=== PATIENT | male | born 1985 | race Caucasian/White ===

== ENCOUNTER 2017-05-14 04:16 | Emergency (ER) | payer SELFPAY ==
[2017-05-14 04:19] VITALS: BP 138/90; PULSE 90; RESP 16; TEMP 98.2; O2SAT 99
--- NOTE | 2017-05-14 04:33 | PD ---
HPI Chief Complaint: Foreign Body Time Seen by Provider: 04:30 Travel History International Travel<30 days: No Contact w/Intl Traveler<30days: No Traveled to known affect area: No History of Present Illness HPI Patient comes in with concerns over possible foreign body in his right forearm. Patient states he was shooting up with Dilaudid and part of the 30-gauge needle broke off he believes in his forearm. Patient denies any pain with this. Patient states he is just concerned that it is still there. Denies any chest pain, shortness of breath, fevers, abdominal pain, or headache. Patient states he feels though the foreign body remains in his forearm but is uncertain exact spot. Denies anything making this better or worse. Patient reports his tetanus shot is up-to-date. [facility] Past Medical History Medical History: Denies Significant Hx Social History Alcohol Use: No Tobacco Use: Yes Substance Use: Yes Allergies-Medications (Allergen,Severity, Reaction): Coded Allergies: Penicillin (Verified Allergy, Severe, Edema, 05/14/17) Reported Meds & Prescriptions Reported Meds & Active Scripts Active Bactrim DS (Sulfamethoxazole-Trimethoprim) 800-160 Mg Tab 1 Tab PO BID Review of Systems Except as stated in HPI: all other systems reviewed are Neg Physical Exam Narrative GENERAL: Well-developed, well nourished, in no acute distress, and non-ill appearing. SKIN: Focused skin assessment warm and dry. Multiple tattoos noted on right forearm with track pak noted. No obvious foreign body noted. No signs of infection. HEAD: Atraumatic. Normocephalic. EYES: Pupils equal and round. EOMI. No scleral icterus. No injection or drainage. ENT: No nasal bleeding or discharge. Mucous membranes pink and moist. NECK: Trachea midline. Supple. No nuclear rigidity. CARDIOVASCULAR: Regular rate and rhythm. No murmur appreciated. RESPIRATORY: No accessory muscle use. No respiratory distress. Clear to auscultation. Breath sounds equal bilaterally. MUSCULOSKELETAL: No obvious deformities. No clubbing. No cyanosis. No edema. Full range of motion. NEUROLOGICAL: Awake and alert. No obvious cranial nerve deficits. Motor grossly within normal limits. Normal speech. PSYCHIATRIC: Appropriate mood and affect; insight and judgment normal. Data Data Last Documented VS Vital Signs Date Time Temp Pulse Resp B/P Pulse Ox O2 Delivery O2 Flow Rate FiO2 05/14/17 04:19 98.2 90 16 138/90 99 Room Air Orders Forearm (2vws) (05/14/17 ) MDM Medical Decision Making Medical Screen Exam Complete: Yes Emergency Medical Condition: Yes Interpretation(s) X-ray of the right forearm shows foreign body noted soft tissue forearm that this perpendicular the radial ulnar. Radiologist to over read. Differential Diagnosis Retained foreign body, feared complaint, IV drug abuse, other Narrative Course Foreign body is too small to blindly digging around to try to retrieve. I explained to the patient this will work its way out over time. Patient placed on antibiotics prophylactically to help prevent infection. Patient instructed to follow up with a general surgeon for possible extraction if desired. The patient was given signs and symptom warnings for infection, such as increasing pain, redness, swelling, associated heat, pus or fever. Patient was instructed to return immediately if signs or symptoms develop. Patient verbalizes understanding. Patient in no obvious distress upon re-evaluation. All pertinent Radiology result(s) discussed with patient. Patient was asked if they wanted to speak to my attending, which the patient did not wish to do at this time. Any questions/ concerns in reference to patient diagnosis/condition discussed and clarified prior to patient's discharge. Reinforced sheer importance of close follow up with patient's primary physician or primary care clinic and/or general surgeon. Instructed patient to return to ED immediately, if symptoms return/worsen. Pt showed understanding of above instructions. Further instructions and recommendations were detailed in discharge paperwork. Pt ambulated without difficulty out of ED at discharge. Diagnosis Primary Impression: Foreign body forearm Referrals: General Surgeon Patient Instructions: General Instructions, Soft Tissue Foreign Body (ED) Additional Instructions: Follow-up with your primary care physician and/or general surgeon 3-5 days for reevaluation. Take all medication as prescribed. Return to the emergency department if symptoms get worse. Med/Other Pt SpecificInfo: Prescription(s) given Scripts Sulfamethoxazole-Trimethoprim (Bactrim DS)800-160 Mg Tab1 Tab PO BID #20 TAB Ref 0 Prov:Aliza Fish DO 05/14/17 Disposition: DISCHARGE HOME Condition: Stable Mesfin Santiago May 14, 2017 04:33
[2017-05-14] MEDS ORDERED: BACT800T5 PO (05:21)
--- NOTE | 2017-05-14 06:35 | RADRPT ---
EXAM DATE/TIME: 05/14/2017 04:52 [facility] COMPARISON: No previous studies available for comparison. INDICATIONS : Possible foreign body in right forearm. MEDICAL HISTORY : None. SURGICAL HISTORY : None. ENCOUNTER: Initial ACUITY: 1 day PAIN SCORE: 5/10 LOCATION: Right Forearm FINDINGS: There is a slightly less than 1 cm long needle fragment in the volar soft tissues of the mid forearm region. The underlying bony elements are intact unremarkable CONCLUSION: Needle fragment in the volar soft tissues of the midforearm Matthias Jones MD on May 14, 2017 at 6:32 Board Certified Radiologist. This report was verified electronically.
== END 2017-05-14 05:46 | disposition home or self-care (01) ==
LOC: NEPD 04:16
DX: S51.841A Puncture wound with foreign body of right forearm, initial encounter (principal); X58.XXXA Exposure to other specified factors, initial encounter
CPT/HCPCS: 73090; 99283

== ENCOUNTER 2017-07-11 12:06 | Emergency (ER) | payer SELFPAY ==
[~2017-07-11 12:06] MED LIST: BACT800T5 PO
[2017-07-11 12:07] VITALS: BP 161/100; PULSE 96; RESP 18; TEMP 99.1; O2SAT 99
[2017-07-11] MEDS ORDERED: PRED-503 PO (12:43)
[2017-07-11] MEDS ORDERED: CLIN1CAP5 PO (12:43)
[2017-07-11] MEDS ORDERED: IBUP800T23 PO (12:43)
--- NOTE | 2017-07-11 12:44 | PD ---
HPI Chief Complaint: Facial Pain or Swelling Time Seen by Provider: 12:41 Travel History International Travel<30 days: No Contact w/Intl Traveler<30days: No Traveled to known affect area: No History of Present Illness HPI 31-year-old male presents emergency Department with complaint of right upper tooth pain 3 days with onset of facial swelling today. Denies difficulty swallowing, unusual drooling, sore throat. Denies fever, vomiting. Pain radiates to his jew area. Pain is constant. Has been taking Tylenol for symptom management. No known relieving factors. Symptoms are moderate in severity. Has no other medical complaints. Allergies to penicillin. No other modifying factors or associated signs and symptoms. PFSH Past Medical History Diminished Hearing: No Migraines: Yes Tetanus Vaccination: < 5 Years Influenza Vaccination: No Past Surgical History Abdominal Surgery: Yes (groin hernia repair left side) Social History Alcohol Use: No Tobacco Use: Yes (10/26 ppd) Substance Use: Yes Allergies-Medications (Allergen,Severity, Reaction): Coded Allergies: penicillin G (Unverified Allergy, Severe, Edema, 07/11/17) Reported Meds & Prescriptions Reported Meds & Active Scripts Active Ibuprofen 800 Mg Tab 800 Mg PO Q6HR PRN Deltasone (Prednisone) 20 Mg Tab 40 Mg PO DAILY 4 Days start 07/12/2017 Clindamycin (Clindamycin HCl) 150 Mg Cap 450 Mg PO Q6H 10 Days Review of Systems Except as stated in HPI: all other systems reviewed are Neg Physical Exam Narrative GENERAL: Well-nourished, well-developed male patient, in no acute distress; afebrile, nontoxic-appearing SKIN: Warm and dry. HEAD: Atraumatic. Normocephalic. Right upper facial edema and with tenderness on palpation; without erythema. No lymphadenopathy. EYES: Pupils equal and round. No scleral icterus. No injection or drainage. ENT: Mucosa pink and moist. No erythema or exudates. No uvular edema. No uvular , palatal, or tonsillar deviation. Airway patent. MOUTH: Mucous membranes moist, no lesions, tongue and gums appear normal. Her dentition throughout. Tooth #5&6 with tenderness on palpation; those teeth with large dental cavities. Gingiva above right upper teeth is erythematous and edematous; without drainage. No obvious abscess noted. NECK: Trachea midline. No lymphadenopathy. CARDIOVASCULAR: Regular rate. RESPIRATORY: No accessory muscle use. GASTROINTESTINAL: Flat. MUSCULOSKELETAL: No obvious deformities. No clubbing. No cyanosis. No edema. NEUROLOGICAL: Awake and alert. Oriented 3. No obvious cranial nerve deficits. Motor grossly within normal limits. Normal speech. PSYCHIATRIC: Appropriate mood and affect; insight and judgment normal. Data Data Last Documented VS Vital Signs Date Time Temp Pulse Resp B/P (MAP) Pulse Ox O2 Delivery O2 Flow Rate FiO2 07/11/17 12:07 99.1 96 18 161/100 (120) 99 Orders Orders Clindamycin Inj (Cleocin Inj) (07/11/17 12:45) Ketorolac Inj (Toradol Inj) (07/11/17 12:45) Prednisone (Deltasone) (07/11/17 12:45) [facility] Medical Decision Making Medical Screen Exam Complete: Yes Emergency Medical Condition: Yes Medical Record Reviewed: Yes Differential Diagnosis Dental abscess, dentalgia, infected dental caries, gingivitis Narrative Course 31-year-old male physical exam consistent with right upper dental abscess. Right upper facial edema noted. Patient is afebrile and nontoxic appearing. Denies fever, vomiting. Allergies penicillin. Clindamycin 600 mg IM, Toradol, Deltasone administered in the ER. Emergency dental information sheet provided for follow-up. Instructed patient to follow up with dentist. Clindamycin, ibuprofen, Deltasone prescribed for home. Instructed patient to follow up with primary care provider. Patient verbalizes understanding and agreement with treatment plan. Patient is medically cleared and stable for discharge. Discussed reasons to return to the emergency department. Patient agrees with treatment plan. The patients vital signs are stable and the patient is stable for outpatient follow-up and treatment. Patient discharged home, stable and in no acute distress. Diagnosis Primary Impression: Dental abscess Referrals: [facility]ist Primary Care Physician Patient Instructions: Dental Abscess (ED), Dental Caries (ED), General Instructions, Toothache (ED) Departure Forms: Tests/Procedures, Work Release Enter return to work date: Jul 13, 2017 Additional Instructions: Complete full course of antibiotics Ibuprofen or Tylenol as directed and as needed to reduce pain and inflammation Warm or cool compresses to the affected area Follow-up with dentist Follow-up with primary care provider Return to emergency department immediately with worsening of symptoms Med/Other Pt SpecificInfo: Prescription(s) given Scripts Ibuprofen (Ibuprofen) 800 Mg Tab 800 MG PO Q6HR Y for PAIN, #30 TAB 0 Refills Prov: Renae Fernandez 07/11/17 Prednisone (Deltasone) 20 Mg Tab 40 MG PO DAILY for 4 Days, #8 TAB 0 Refills start 07/12/2017 Prov: Renae Fernandez 07/11/17 Clindamycin (Clindamycin) 150 Mg Cap 450 MG PO Q6H for Infection for 10 Days, #120 CAP 0 Refills Prov: Renae Fernandez 07/11/17 Disposition: 01 DISCHARGE HOME Condition: Stable Renae Fernandez Jul 11, 2017 12:44
[2017-07-11] MEDS ORDERED: CLINDAMYCIN PHOS 600 MG/4 ML VIAL IM ONE (12:45)
[2017-07-11] MEDS ORDERED: KETOROLAC TROMETHAMINE 60 MG/2 ML (IM) VIAL IM ONE (12:45)
[2017-07-11] MEDS ORDERED: predniSONE 20 MG TAB PO ONE (12:45)
== END 2017-07-11 13:57 | disposition home or self-care (01) ==
LOC: NEPK 12:06
DX: K04.7 Periapical abscess without sinus (principal)
CPT/HCPCS: 96372; 99284; J1885; J7512